=== PATIENT | male | born 1960 | race Caucasian/White ===

== ENCOUNTER 2022-10-11 10:00 | Outpatient (RCR) | payer MEDICARE, SELFPAY ==
--- NOTE | 2022-10-11 13:03 | PT.OPEX ---
[facility] Eval PT [facility] Outpatient Eval Start: 10/11/22 10:06 Freq: Status: Active Protocol: Document 10/11/22 10:07 [facility] (Rec: 10/11/22 12:05 [facility] [id number]) E-signed By Grecia Li PT Physical Therapy Outpatient Evaluation Insurance Information Recert Due Date 01/04/23 Insurance Name Medicare B,Blue Cross/Blue Shield Insurance Information/Comments Medicare Medical Diagnosis Multiple sclerosis Treating Diagnosis Muscle weakness Fatigue Impaired gait Impaired balance Referring MD Gerber Otoole Subjective Subjective Pt presents to physical therapy with concerns of multiple sclerosis. He was diagnosed 27 years ago and it has been a slow progression of symptoms, including gait instability, muscle weakness ( L UE and LE most prominent), muscle cramping in the left calf, and fatigue. His daughter in [place] has been wanting him to go to physical therapy, which he has not been to in awhile. Not currently taking any medications for his symptoms; injected Avenex for 3 years originally, but stopped due to medication hangovers. He is unsure which type of MS he has, as he has not been formally told, but thinks it may be relapsing- remitting. The last time he was seen by a doctor for his MS was in 2011, where he had an MRI. His main concerns are his balance and gait; he would like to walk stronger and have better gait. Specifically , he has more trouble getting up from the floor, standing up from a chair, walking longer distances and on uneven ground , and making turns quickly. He describes frequent fatigue that makes his balance more difficult. He has four 6 hour days, good power for the first 3-4 hours of the day, then is low energy after that. Denies sensory changes, numbness or tingling, or pain other than the muscle cramping . He would like to have one session of PT and wait 30 days (length of billing cycle) afterwards to see how it affects his billing before scheduling more. Currently, he goes on walks once per day, usually 800 to 1,000 steps if he had to estimate duration. He finds when he slows down that he is most successful with his balance and fatigue. No falls in the last 12 months , although historically he has had 4-5 falls in his life when he did not slow down. He has 17 stairs between levels of his home where he lives alone, which do not give him trouble since installing a handrail. He is not fearful of falling. Does not utilize an assistive device. He also has noticed deteriorating fine motor skills and hand-eye coordination L > R, but has never seen OT. Date of Last Physician Visit 10/02/22 Current Work Status Retired Occupation Retired delicatessen department manager Precautions Treatment Precautions/Contraindications Fall risk Therapy Limitations/Systems Review Not Limited Objective Other/Pertinent Objective Posture assessment: Patient demonstrates forward head and rounded shoulders, reliance on downward gaze for balance Gait assessment: Ambulates with decreased celi and small, shuffling steps, shortened step length on right to compensate for left-sided weakness, adequate foot clearance, widened base of support, no assistive device ROM: Upper extremities within normal limits, lower extremities within functional limits UE MMT: 5/5 for shoulder flexion and abduction, 5/5 for elbow flexion and extension LE MMT: Hip flexion: R 5/5 L 5/5 Knee flexion: R 5/5 L 5/5 Knee extension: R 5/5 L 5/5 Ankle dorsiflexion: R 5/5 L 5/ 5 Outcome Measures: LE Balance: -TUG (10 feet): 8.1 sec -5x Fpb-wk-quoir: 12.5 sec -30 second [id number]-[id number]: 12 reps Palpation/joint mobility: Not assessed Gait/balance: Four-stage balance test -Narrow stance: 10 seconds -Semi-tandem: 10 seconds -Tandem: unable without assist , one incident of near fall where therapist utilized mod A at gait belt to keep patient upright -SLS: 2 seconds R, <1 second L Romberg -Eyes closed: 10 seconds Tx: -Submaximal exercise education (handout provided): Discussed the balance between activity and rest with goal of conserving your energy throughout daily routine while keeping an active lifestyle. Recommended dividing exercise into short bouts of activity and discussed symptoms to look for that may indicate exercise intensity that is too high (muscle soreness, cramping, weakness, or fatigue ). -Provided information regarding [address] [place] [address] gym membership and [employer] classes covered by Medicare 65 + -Educated on role of OT for fine motor skill deficits and recommended patient pursue if desired -Patient was educated on anatomy, physiology as it relates to current condition and HEP with use of handout/ [employer]. Patient verbalizes understanding and agrees with POC/goals. Discussed challenging balance effectively but safely ( perform near chair/corner, more UE support at first until balance feels appropriately challenged) Pt educated in the following exercises to improve functional strength and balance with verbal/tactile cues as necessary: Access Code: [email or web address] URL: [email or web address] Date: 10/11/2022 Prepared by: Grecia Li Program Notes Walking 5-10 minute increments several times per day. Pay attention to fatigue! Sit down if needed. Break up into smaller chunks.? Exercises - Tandem Stance with Support - 1 x daily - 7 x weekly - 3 sets - 30-60 seconds hold - Slow Marching with Support - 1 x daily - 7 x weekly - 3 sets - 10 reps - Staggered Oqf-ho-Xfrly - 1 x daily - 4 x weekly - 3 sets - 12 reps - Gastroc Stretch on Wall - 1 x daily - 7 x weekly - 3 sets - 30-60 seconds hold Assessment Assessment/Impression Pt is a 62-year-old male who presents with long-standing history of multiple sclerosis; he is unsure what type, but it has progressed slowly for 27 years. On exam, patient demonstrates notable objective findings including full and pain-free UE and LE ROM, impaired dynamic and static balance, decreased LE strength L > R, fatigue, impaired gait , and daily muscle cramping, leading to difficulties with walking longer distances and on uneven ground, standing up from a chair, and making turns quickly. Per 30-second sit to stand assessment, patient is classified as high fall risk and falls below age-related norm of 17 repetitions. Benefits from frequent cues for redirection to task and may benefit from skilled OT services to address fine motor deficits. Requires contact guard to mod A for higher- level balance activities. Will plan on administering Multiple Sclerosis Impact Scale and Functional Gait Assessment next visit for further information on dynamic balance ability. Patient is appropriate for skilled physical therapy services to address the above deficits. Pt was agreeable with plan of care and goals established. Primary Functional Limitations walking longer distances and on uneven ground, standing up from a chair, making turns quickly Plan of Care Rehabilitation Potential Good Physical Therapy Goals In 2 sessions: 1. Patient will be independent with HEP and self-management of symptoms. In 12-16 sessions: 2. Patient will improve 30 sec STS from 12 reps to 15 reps to demonstrate improvement in LE functional strength. 3. Patient will improve FGA by >4 points to demonstrate improved dynamic walking balance and confidence and decrease fall risk. 4. Patient will maintain tandem stance for >5 seconds without UE support to improve static balance and decrease fall risk. Coordination/Communication With Referral Source Treatment Plan/Direct Interventions Gait Training,Joint Mobilization,Manual Therapy, Neuromuscular Re-ed,Self-Care/ Home Management,Therapeutic Activities,Therapeutic Exercises Frequency/Duration 1x/week starting in 5 weeks and for a total of 12-16 sessions Patient Will Be Discharged From Therapy Completion of LTG(s), Independent w/HEP, Independently Progressing Evaluation Billing Untimed Code Treatment Minutes 40 Complexity Moderate Certification Information Initial Certification Date 10/11/22 Ending Certification Date 01/04/23 Provider Signature Shows Agreement With POC & Medical Necessity Physician Signature & Date Requested Please Sign/Date Here Physician Comment/Change : Physician NPI Number #
== END 2023-01-27 09:00 | disposition home or self-care (01) ==
PROVIDERS: PCP Family Medicine; Visit Provider Family Medicine
DX: G35 Multiple sclerosis (principal); M62.81 Muscle weakness (generalized); R53.83 Other fatigue; R26.9 Unspecified abnormalities of gait and mobility; R26.81 Unsteadiness on feet; Z51.89 Encounter for other specified aftercare
CPT/HCPCS: 97110; 97162